=== PATIENT | female | born 1935 | race Caucasian/White ===

== ENCOUNTER 2017-03-08 10:54 | Observation (INO) | payer MEDICARE, OTHER ==
[2017-03-08] VITALS (11 sets, daily range): BP systolic 112–169; BP diastolic 62–91; PULSE 73–110; RESP 16–20; TEMP 98.5–99; O2SAT 94–99
[~2017-03-08] VITALS: Ht 160 cm; Wt 71.8 kg
[~2017-03-08 10:54] MED LIST: CARV40 PO; CHOL20005 PO; FURO1TAB62 PO; GABA100C4 PO; GLUCOMTESTSTRIPS XX; LEVO100T5 PO; LOSA50TA PO; METF1000 PO; MULT-6 PO; PRAV20TA PO; PROT40TA PO; SPIR25TA PO; TRIPCAP4 PO; ULTR50TA5 PO; VENL75XR PO; XARE15TA PO; Z.0.LANCETS XX
[2017-03-08 11:41] LABS: AUTOMATED NEUTROPHIL # 5.2 TH/MM3 (1.8-7.7); BASOPHIL % 0.3 % (0.0-2.0); EOSINOPHIL # 0.2 TH/MM3 (0-0.4); EOSINOPHIL % 2.9 % (0.0-4.0); HEMATOCRIT 27.7 % (35.0-46.0); HEMO FLAGS DIFF FINAL; LYMPH % 12.8 % (9.0-44.0); LYMPHOCYTE # 0.8 TH/MM3 (1.0-4.8); MEAN CELL VOLUME 85.6 FL (80.0-100.0); MEAN CORPUSCULAR HEMOGLOBIN 28.5 PG (27.0-34.0); MEAN CORPUSCULAR HGB CONC 33.3 % (32.0-36.0); MONO % 5.1 % (0.0-8.0); NEUT % 78.9 % (16.0-70.0); PLATELET COUNT 365 TH/MM3 (150-450); RED BLOOD COUNT 3.24 MIL/MM3 (4.00-5.30); RED CELL DISTRIBUTION WIDTH 12.9 % (11.6-17.2); WHITE BLOOD COUNT 6.5 TH/MM3 (4.0-11.0)
[2017-03-08 11:50] LABS: CHLORIDE 107 MEQ/L (98-107); POTASSIUM 4.6 MEQ/L (3.5-5.1); SODIUM (NA) 140 MEQ/L (136-145)
[2017-03-08 11:53] LABS: ANION GAP 9 MEQ/L (5-15); BLOOD UREA NITROGEN 34 MG/DL (7-18)
[2017-03-08 11:54] LABS: APTT (PATIENT) 28.9 SEC (24.3-30.1); INTERNATIONAL NORMALIZED RATIO 1.1 RATIO
[2017-03-08 11:56] LABS: ALT (GPT) 15 U/L (10-53); AST (GOT) 13 U/L (15-37); GLOMERULAR FILTRATION RATE 36 ML/MIN (>89)
[2017-03-08 11:58] LABS: TOTAL BILIRUBIN ADULT 0.7 MG/DL (0.2-1.0)
[2017-03-08 11:59] LABS: ALKALINE PHOSPHATASE 66 U/L (45-117)
--- NOTE | 2017-03-08 12:33 | PD ---
HPI Chief Complaint: Fall Time Seen by Provider: 11:14 Travel History International Travel<30 days: No Contact w/Intl Traveler<30days: No Traveled to known affect area: No History of Present Illness HPI This is an 82-year-old female who presents to the emergency department having fallen backwards onto concrete steps one week ago hitting the left side of her body with persistent left-sided pain, constant, moderate severity, associated with worsening weakness. She came in today because she's been increasingly weak throughout the past week, a little bit lightheaded, having difficulty exerting herself and difficulty completing her daily tasks. She is on Xarelto and has significant bruising on her abdomen and back. PFSH Past Medical History Hx Anticoagulant Therapy: Yes Arthritis: Yes Asthma: No Atrial Fibrillation: Yes Autoimmune Disease: No Anxiety: No Heart Rhythm Problems: Yes (A-FIB S/P ABLATION X2) Cancer: No Cardiovascular Problems: Yes (htn on meds, hx of a-fib) High Cholesterol: Yes Chest Pain: Yes Congestive Heart Failure: Yes COPD: No Cerebrovascular Accident: No Diabetes: Yes Patient Takes Glucophage: No Diminished Hearing: No Endocrine: Yes Gastrointestinal Disorders: No GERD: No Genitourinary: No Headaches: Yes Hiatal Hernia: No Hypertension: Yes Immune Disorder: No Implanted Vascular Access Dvce: Yes Musculoskeletal: Yes Neurologic: Yes (NEUROPATHY) Psychiatric: Yes (TAKES EFFEXOR) Reproductive: No Respiratory: Yes Migraines: Yes Seizures: No Sleep Apnea: Yes (does not use c-pap) Thyroid Disease: Yes Ulcer: No PNEUMOCCOCAL Vaccine (Year): 1 ?: Not Menopausal: Yes Past Surgical History Abdominal Surgery: Yes (TOTAL ABD. HYSTERECTOMY) AICD: No Appendectomy: Yes Arteriovenous Shunt: No Cardiac Surgery: Yes (ABLATION X2) Ear Surgery: No Endocrine Surgery: No Eye Surgery: Yes (LENS IMPLANTS) Gynecologic Surgery: Yes (SEE ABOVE) Hysterectomy: Yes Insulin Pump: No Joint Replacement: Yes (BILAT. KNEES) Neurologic Surgery: No Oral Surgery: Yes (TEETH REMOVAL, DENTURE IMPLANT) Pacemaker: No Thoracic Surgery: No Other Surgery: Yes (BILAT. KNEE REPLACEMENT, HYSTERECTOMY) Social History Alcohol Use: No Tobacco Use: No Substance Use: No Allergies-Medications (Allergen,Severity, Reaction): Coded Allergies: Codeine (Verified Allergy, Intermediate, Itching, 03/08/17) Sulfa (Verified Allergy, Intermediate, Itching, 03/08/17) Lisinopril (Verified Allergy, Unknown, Cough, 03/08/17) Reported Meds & Prescriptions Reported Meds & Active Scripts Active Metformin (Metformin HCl) 1,000 Mg Tab 1,000 Mg PO BIDPC With meals Lasix (Furosemide) 20 Mg Tab 20 Mg PO BID Gabapentin 100 Mg Cap 400 Mg PO HS Reported Spironolactone 25 Mg Tab 25 Mg PO HS Losartan (Losartan Potassium) 50 Mg Tab 50 Mg PO HS Effexor XR 24 HR (Venlafaxine HCl) 75 Mg Cap 75 Mg PO HS Coreg Cr 24 HR (Carvedilol) 40 Mg Cap 40 Mg PO HS Centrum (Multiple Vitamins W/ Minerals) 1 Tab 1 Tab PO HS Xarelto (Rivaroxaban) 15 Mg Tab 15 Mg PO HS Ultram (Tramadol HCl) 50 Mg Tab 50 Mg PO BID PRN Protonix (Pantoprazole Sodium) 40 Mg Tab 40 Mg PO DAILY Pravachol (Pravastatin) 20 Mg Tab 20 Mg PO HS Levothyroxine (Levothyroxine Sodium) 100 Mcg Tab 100 Mcg PO DAILY D3 Super Strength (Cholecalciferol) 2,000 Unit Cap 2,000 Units PO DAILY Review of Systems Except as stated in HPI: all other systems reviewed are Neg Physical Exam Narrative GENERAL: Pale SKIN: Marked Ecchymoses over the abdomen and left back and flank HEAD: Atraumatic. Normocephalic. EYES: Pupils equal and round. No injection or drainage. ENT: Moist mucous membranes NECK: Trachea midline. CARDIOVASCULAR: Regular rate and rhythm. No murmur appreciated. RESPIRATORY: Clear to auscultation. Breath sounds equal bilaterally. GASTROINTESTINAL: Abdomen soft, non-tender, nondistended. MUSCULOSKELETAL: No obvious deformities. NEUROLOGICAL: Awake and alert. No obvious cranial nerve deficits. Moving all extremities. PSYCHIATRIC: Appropriate mood and affect; insight and judgment normal. Data Data Last Documented VS Vital Signs Date Time Temp Pulse Resp B/P Pulse Ox O2 Delivery O2 Flow Rate FiO2 03/08/17 13:41 90 20 112/62 97 03/08/17 11:00 98.5 Orders Complete Blood Count With Diff (03/08/17 11:22) Comprehensive Metabolic Panel (03/08/17 11:22) ^ Insert Iv (03/08/17 11:22) Prothrombin Time / Inr (Pt) (03/08/17 11:22) Act Partial Throm Time (Ptt) (03/08/17 11:22) Type And Screen (03/08/17 11:22) Ct Thorax/ Chest Wo Iv Contras (03/08/17 ) Ct Abd/Pel W/O Iv Contrast (03/08/17 ) Sodium Chlor 0.9% 1000 Ml Inj (Ns 1000 M (03/08/17 13:45) Admit Order (Ed Use Only) (03/08/17 14:08) Labs Laboratory Tests Test 03/08/17 11:30 White Blood Count 6.5 TH/MM3 Red Blood Count 3.24 MIL/MM3 Hemoglobin 9.3 GM/DL Hematocrit 27.7 % Mean Corpuscular Volume 85.6 FL Mean Corpuscular Hemoglobin 28.5 PG Mean Corpuscular Hemoglobin 33.3 % Concent Red Cell Distribution Width 12.9 % Platelet Count 365 TH/MM3 Mean Platelet Volume 6.7 FL Neutrophils (%) (Auto) 78.9 % Lymphocytes (%) (Auto) 12.8 % Monocytes (%) (Auto) 5.1 % Eosinophils (%) (Auto) 2.9 % Basophils (%) (Auto) 0.3 % Neutrophils # (Auto) 5.2 TH/MM3 Lymphocytes # (Auto) 0.8 TH/MM3 Monocytes # (Auto) 0.3 TH/MM3 Eosinophils # (Auto) 0.2 TH/MM3 Basophils # (Auto) 0.0 TH/MM3 CBC Comment DIFF FINAL Differential Comment Prothrombin Time 12.0 SEC Prothromb Time International 1.1 RATIO Ratio Activated Partial 28.9 SEC Thromboplast Time Sodium Level 140 MEQ/L Potassium Level 4.6 MEQ/L Chloride Level 107 MEQ/L Carbon Dioxide Level 24.0 MEQ/L Anion Gap 9 MEQ/L Blood Urea Nitrogen 34 MG/DL Creatinine 1.40 MG/DL Estimat Glomerular Filtration 36 ML/MIN Rate Random Glucose 190 MG/DL Calcium Level 9.0 MG/DL Total Bilirubin 0.7 MG/DL Aspartate Amino Transf 13 U/L (AST/SGOT) Alanine Aminotransferase 15 U/L (ALT/SGPT) Alkaline Phosphatase 66 U/L Total Protein 7.6 GM/DL Albumin 3.3 GM/DL Blood Type O NEGATIVE Antibody Screen NEGATIVE MDM Medical Decision Making Medical Screen Exam Complete: Yes Emergency Medical Condition: Yes Interpretation(s) Afebrile, mild tachycardia Hemoglobin is 9.3 down from baseline at 13 Renal insufficiency compared to prior Last [address] 03/08/17 0000 Signed Impressions: Service Date/Time: February 13:00 - CONCLUSION: 1. No evidence of visceral injury or pneumothorax. The ribs and bony thorax are intact. 2. Multiple tiny scattered noncalcified pulmonary nodules which are nonspecific. Given the calcified granulomas in the liver and spleen these most likely represent noncalcified granulomas. Short-term CT followup is recommended beginning in 6 months. 3. Mild underlying emphysema. Trenton Amos MD Abdomen/Pelvis CT 03/08/17 0000 Signed Impressions: Service Date/Time: February 13:00 - CONCLUSION: 1. No evidence of visceral injury. 2. Mild diverticulosis. 3. Calcified granulomas in the liver and spleen. 4. Multiple tiny noncalcified pulmonary nodules noted in both lung bases. Please see chest CT report for further details. Trenton Amos MD Differential Diagnosis Splenic laceration, liver laceration, abdominal wall hematoma, anemia Narrative Course This is an 82-year-old female who presents to the emergency department having had a mechanical fall 1 week ago with increasing dyspnea on exertion and generalized weakness. She has impressive bruising extending along her left torso over her abdomen. She takes xarelto at home. She was placed on a monitor and an IV was established. Labs demonstrated significant anemia with a hemoglobin of 9.3 compared to a baseline of 13. Given she is symptomatic I think it's reasonable to transfuse her a unit of blood and admit her for observation. CT of the chest and pelvis were obtained without contrast due to renal insufficiency and were negative for obvious internal source of bleeding. I suspect she lost a large amount of blood on her external hematomas. Physician Communication Physician Communication Discussed with Dr. Monroe Diagnosis Primary Impression: Symptomatic anemia Additional Impression: Fall Qualified Code: W19.XXXA - Fall, initial encounter Admitting Information Admitting Physician Requests: Observation Jacki Salomon MD Mar 08, 2017 12:33
[2017-03-08] MEDS ORDERED: SODIUM CHLOR 0.9% 1000 ML INJ 1,000 ML IV ONE (13:45)
--- NOTE | 2017-03-08 13:45 | RADHPO ---
EXAM DATE/TIME: 03/08/2017 13:00 [facility] COMPARISON: CTA CHEST W 3D RECON, October 09, 2011, 1:35. INDICATIONS : Trauma. Fall 1 week ago. Bruising wrapped around torso. RADIATION DOSE: 15.74 CTDIvol (mGy) ; Combined studies - Thorax/Abdomen/Pelvis MEDICAL HISTORY : Diabetes mellitus type 2. Congestive heart failure. Hypertension. SURGICAL HISTORY : Appendectomy. Hysterectomy. Cardiac ablation. ENCOUNTER: Initial ACUITY: 1 week PAIN SCALE: 5/10 LOCATION: chest TECHNIQUE: Volumetric scanning of the chest was performed. Using automated exposure control and adjustment of t he mA and/or kV according to patient size, radiation dose was kept as low as reasonably achievable to obtain optimal diagnostic quality images. FINDINGS: LUNGS: There is no consolidation or pneumothorax. There are multiple tiny scattered noncalcified pulmonary n odules in both lungs measuring 1-3 mm in size. They're no larger masses. There is mild underlying emp hysema. PLEURAE: There is no pleural thickening or pleural effusion. MEDIASTINUM: The heart and great vessels demonstrate no acute abnormality. There is no mediastinal or hilar lymph adenopathy. Tracheal calcifications are present. AXILLAE: Within normal limits. No lymphadenopathy. MUSCULOSKELETAL: Within normal limits for patient age. MISCELLANEOUS: The visualized upper abdominal organs demonstrate no acute abnormality. There are multiple calcified granulomas in the liver and spleen. CONCLUSION: 1. No evidence of visceral injury or pneumothorax. The ribs and bony thorax are intact. 2. Multiple tiny scattered noncalcified pulmonary nodules which are nonspecific. Given the calcified granulomas in the liver and spleen these most likely represent noncalcified granulomas. Short-term CT followup is recommended beginning in 6 months. 3. Mild underlying emphysema. Trenton Amos MD on March 08, 2017 at 13:38 Board Certified Radiologist. This report was verified electronically.
--- NOTE | 2017-03-08 13:47 | RADHPO ---
EXAM DATE/TIME: 03/08/2017 13:00 [facility] COMPARISON: CT THORAX W/O CONTRAST, March 08, 2017, 13:00. CT ABDOMEN & PELVIS W CONTRAST, May 03, 2016, 17:34. INDICATIONS : Trauma. Fall 1 week ago. Bruising wrapped around torso. ORAL CONTRAST: No oral contrast ingested. RADIATION DOSE: 15.74 CTDIvol (mGy) ; Combined studies - Thorax/Abdomen/Pelvis MEDICAL HISTORY : Diabetes mellitus type 2. Congestive heart failure. Hypertension. SURGICAL HISTORY : Appendectomy. Hysterectomy.Cardiac ablation. ENCOUNTER: Initial ACUITY: 1 week PAIN SCALE: 5/10 LOCATION: Abdomen. TECHNIQUE: Volumetric scanning of the abdomen and pelvis was performed. Using automated exposure control and ad justment of the mA and/or kV according to patient size, radiation dose was kept as low as reasonably achievable to obtain optimal diagnostic quality images. FINDINGS: LOWER LUNGS: Multiple tiny noncalcified pulmonary nodules are again noted. LIVER: Homogeneous density without lesion. There is no dilation of the biliary tree. No calcified gallston es. There are numerous scattered calcified granulomas. SPLEEN: Normal size without lesion. There are multiple small calcified granulomas PANCREAS: Within normal limits. KIDNEYS: Normal in size and shape. There is no mass, stone, or hydronephrosis. ADRENAL GLANDS: Within normal limits. VASCULAR: There is no aortic aneurysm. BOWEL/MESENTERY: The stomach, small bowel, and colon demonstrate no acute abnormality. Multiple diverticuli are presen t greatest in the sigmoid colon. There is no free intraperitoneal air or fluid. ABDOMINAL WALL: Within normal limits. RETROPERITONEUM: There is no lymphadenopathy. BLADDER: No wall thickening or mass. REPRODUCTIVE: Within normal limits. INGUINAL: There is no lymphadenopathy or hernia. MUSCULOSKELETAL: No acute fracture or malalignment. There are degenerative changes in both hips and lumbar spine. CONCLUSION: 1. No evidence of visceral injury. 2. Mild diverticulosis. 3. Calcified granulomas in the liver and spleen. 4. Multiple tiny noncalcified pulmonary nodules noted in both lung bases. Please see chest CT report for further details. Trenton Amos MD on March 08, 2017 at 13:43 Board Certified Radiologist. This report was verified electronically.
[2017-03-08] MEDS ORDERED: FUROSEMIDE 20 MG/2 ML VIAL IV PUSH ONE (14:15)
[2017-03-08] MEDS ORDERED: SENNOSIDES 8.6 MG TAB PO PRN (15:00)
[2017-03-08] MEDS ORDERED: SODIUM CHLORIDE 0.9% FLUSH 10 ML FLUSH IV FLUSH PRN (15:00)
[2017-03-08] MEDS ORDERED: NALOXONE HCL 0.4 MG/ML AMP IV PRN (15:00)
[2017-03-08] MEDS ORDERED: ACETAMINOPHEN/HYDROcodone 325 MG/5 MG TAB PO PRN (15:00)
[2017-03-08] MEDS ORDERED: ACETAMINOPHEN 325 MG TAB PO PRN ×2 (15:00)
--- NOTE | 2017-03-08 15:08 | HHI.HP ---
[facility] Deana Hilton MD Admission Diagnosis symptomatic anemia, fall Diagnoses: Chief Complaint: Pain Travel History International Travel<30 Days: No Contact w/Intl Traveler <30 Da: No Traveled to Known Affected Are: No History of Present Illness The patient is an 82-year-old female with a past medical history of atrial fibrillation and CHF who is presenting to the hospital with pain involving her back and abdominal area. The patient said she had a fall about a week ago when she was helping her friend bring down a wheelchair down a flight of stairs. The patient ended up falling on her left side of her body. She says she didn't have pain right away but about 2 hours later she developed left-sided upper back pain. Over the next few days she noticed significant bruising in the back as well as around the left side of her flank. Her pain was rated at 9 out of 10 in severity at its worst. Her daughter noticed the extent of the patient's wounds and the patient was brought to the hospital. The pt says she has been having falls every 3-4 months or so. She said she has been hitting her head. Her daughter is concerned about her being on Xarelto and the frequent falls. Review of Systems Except as stated in HPI: all other systems reviewed are Neg Past Family Social History Past Medical History Atrial fibrillation status post ablation 2 CHF Hypothyroidism Diabetes HLP Past Surgical History Appendectomy Hysterectomy Bilateral knee replacements Allergies: Coded Allergies: Codeine (Verified Allergy, Intermediate, Itching, 03/08/17) Sulfa (Verified Allergy, Intermediate, Itching, 03/08/17) Lisinopril (Verified Allergy, Unknown, Cough, 03/08/17) Active Ordered Medications Current Medications Medications (Trade) Dose Ordered Sig/Greta Route Start Time Stop Time Status Last Admin (Neurontin) 400 mg HS PO 03/08/17 21:00 (Protonix) 40 mg DAILY PO 03/09/17 09:00 (Pravachol) 20 mg HS PO 03/08/17 21:00 (Effexor Xr) 75 mg HS PO 03/08/17 21:00 (Coreg) 12.5 mg BID PO 03/08/17 21:00 (Vitamin D3) 2,000 units HS PO 03/09/17 21:00 (Synthroid) 100 mcg HS PO 03/09/17 21:00 (Aspirin) 325 mg HS PO 03/08/17 21:00 Family History CAD Breast cancer CVA Social History The patient does not drink, smoke or use illicit substances. Physical Exam Vital Signs Vital Signs Date Time Temp Pulse Resp B/P Pulse Ox O2 Delivery O2 Flow Rate FiO2 03/08/17 14:39 73 20 162/71 97 03/08/17 13:41 90 20 112/62 97 03/08/17 12:13 86 20 139/69 94 03/08/17 11:00 98.5 100 16 120/86 96 Physical Exam GENERAL: Resting comfortably. SKIN: Marked ecchymoses over the abdomen and left back and flank; pallor noted. HEAD: Atraumatic. Normocephalic. EYES: Pupils equal and round. No injection or drainage. ENT: Moist mucous membranes NECK: Trachea midline. CARDIOVASCULAR: Regular rate and rhythm. No murmur appreciated. RESPIRATORY: Clear to auscultation. Breath sounds equal bilaterally. GASTROINTESTINAL: Abdomen soft, non-tender, nondistended. MUSCULOSKELETAL: No obvious deformities. NEUROLOGICAL: Awake and alert. No obvious cranial nerve deficits. Moving all extremities. PSYCHIATRIC: Appropriate mood and affect; insight and judgment normal. Laboratory Laboratory Tests Test 03/08/17 11:30 White Blood Count 6.5 Red Blood Count 3.24 Hemoglobin 9.3 Hematocrit 27.7 Mean Corpuscular Volume 85.6 Mean Corpuscular Hemoglobin 28.5 Mean Corpuscular Hemoglobin 33.3 Concent Red Cell Distribution Width 12.9 Platelet Count 365 Mean Platelet Volume 6.7 Neutrophils (%) (Auto) 78.9 Lymphocytes (%) (Auto) 12.8 Monocytes (%) (Auto) 5.1 Eosinophils (%) (Auto) 2.9 Basophils (%) (Auto) 0.3 Neutrophils # (Auto) 5.2 Lymphocytes # (Auto) 0.8 Monocytes # (Auto) 0.3 Eosinophils # (Auto) 0.2 Basophils # (Auto) 0.0 CBC Comment DIFF FINAL Differential Comment Prothrombin Time 12.0 Prothromb Time International 1.1 Ratio Activated Partial 28.9 Thromboplast Time Sodium Level 140 Potassium Level 4.6 Chloride Level 107 Carbon Dioxide Level 24.0 Anion Gap 9 Blood Urea Nitrogen 34 Creatinine 1.40 Estimat Glomerular Filtration 36 Rate Random Glucose 190 Calcium Level 9.0 Total Bilirubin 0.7 Aspartate Amino Transf 13 (AST/SGOT) Alanine Aminotransferase 15 (ALT/SGPT) Alkaline Phosphatase 66 Total Protein 7.6 Albumin 3.3 Blood Type O NEGATIVE Antibody Screen NEGATIVE Result Diagram: 03/08/17 1130 03/08/17 1130 Imaging Last Impressions Chest CT 03/08/17 0000 Signed Impressions: Service Date/Time: February 13:00 - CONCLUSION: 1. No evidence of visceral injury or pneumothorax. The ribs and bony thorax are intact. 2. Multiple tiny scattered noncalcified pulmonary nodules which are nonspecific. Given the calcified granulomas in the liver and spleen these most likely represent noncalcified granulomas. Short-term CT followup is recommended beginning in 6 months. 3. Mild underlying emphysema. Trenton Amos MD Abdomen/Pelvis CT 03/08/17 0000 Signed Impressions: Service Date/Time: February 13:00 - CONCLUSION: 1. No evidence of visceral injury. 2. Mild diverticulosis. 3. Calcified granulomas in the liver and spleen. 4. Multiple tiny noncalcified pulmonary nodules noted in both lung bases. Please see chest CT report for further details. Trenton Amos MD Assessment and Plan Assessment and Plan Falls/ Ecchymosis/ Anemia The patient has been falling down every few months. Most recently she injured the left side of her back and abdomen and has significant bruising and pain in those areas. She is on Xarelto for a history of atrial fibrillation. Hemoglobin was lower than baseline in the emergency department. The patient was scanned and the results showed: No evidence of visceral injury or pneumothorax; The ribs and bony thorax are intact; Multiple tiny scattered noncalcified pulmonary nodules which are nonspecific; Calcified granulomas in the liver and spleen; Multiple tiny noncalcified pulmonary nodules noted in both lung bases. - transfuse 1 unit of red cells for symptomatic anemia. Follow CBC. - PT/ OT evals. - d/c Xarelto and start ASA. - CT scans in 6 months for follow-up of granulomas. - pain control with a bowel regimen. Atrial fibrillation The patient is status post 2 ablations. The patient's daughter is concerned about the patient being on Xarelto because of the patient's frequent falls. - Discussed with daughter and patient, will change Xarelto to full strength aspirin. 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 - Continue cardiac regimen. Renal insufficiency The patient recently had her diuretics adjusted. - Hold diuretics and monitor BMP. DM The pt is on metformin as an outpt. - hold metformin. - insulin sliding scale. HTN Blood pressure elevation s/t pain. - pain control. - Vasotec as needed. PPx: SCDs. Code Status Full. Discussed Condition With Pt, pt's daughter, Dr. Salomon. Trenton Monroe DO Mar 08, 2017 15:08
[2017-03-08] MEDS: INSULIN ASPART SUPPLEMENTAL SCALE SQ SCH ×2 (16:00→21:00)
[2017-03-08] MEDS ORDERED: PRAVASTATIN SOD 20 MG TAB PO SCH (21:00)
[2017-03-08] MEDS ORDERED: GABAPENTIN 100 MG CAP PO SCH (21:00)
[2017-03-08] MEDS: SODIUM CHLORIDE 0.9% FLUSH 10 ML FLUSH IV FLUSH SCH (21:00)
[2017-03-08] MEDS ORDERED: VENLAFAXINE HCL XR 75 MG CAP PO SCH (21:00)
[2017-03-08] MEDS ORDERED: RIVAROXABAN 15 MG TAB PO SCH (21:00)
[2017-03-08] MEDS ORDERED: ASPIRIN 325 MG TAB PO SCH (21:00)
[2017-03-08] MEDS: DOCUSATE SODIUM 100 MG CAP PO SCH (21:03)
[2017-03-08] MEDS: CARVEDILOL 12.5 MG TAB PO SCH (21:04)
[2017-03-09] VITALS: BP 135/79; PULSE 94; RESP 16; TEMP 99.1; O2SAT 95
[2017-03-09 04:00] VITALS: BP 146/80; PULSE 80; RESP 16; TEMP 98.2; O2SAT 98
[2017-03-09] MEDS ORDERED: LEVOTHYROXINE SODIUM 100 MCG TAB PO SCH ×2 (06:00→21:00)
[2017-03-09] MEDS: INSULIN ASPART SUPPLEMENTAL SCALE SQ SCH (06:16)
[2017-03-09 08:00] VITALS: BP 130/70; PULSE 85; RESP 18; TEMP 97.4; O2SAT 96
[2017-03-09 08:13] LABS: AUTOMATED NEUTROPHIL # 3.1 TH/MM3 (1.8-7.7); BASOPHIL % 0.6 % (0.0-2.0); EOSINOPHIL # 0.3 TH/MM3 (0-0.4); EOSINOPHIL % 5.7 % (0.0-4.0); HEMATOCRIT 33.8 % (35.0-46.0); HEMO FLAGS DIFF FINAL; LYMPH % 22.8 % (9.0-44.0); LYMPHOCYTE # 1.1 TH/MM3 (1.0-4.8); MEAN CELL VOLUME 87.4 FL (80.0-100.0); MEAN CORPUSCULAR HGB CONC 32.1 % (32.0-36.0); MONO % 8.8 % (0.0-8.0); NEUT % 62.1 % (16.0-70.0); PLATELET COUNT 368 TH/MM3 (150-450); RED BLOOD COUNT 3.87 MIL/MM3 (4.00-5.30); RED CELL DISTRIBUTION WIDTH 13.4 % (11.6-17.2); WHITE BLOOD COUNT 4.9 TH/MM3 (4.0-11.0)
[2017-03-09 08:14] LABS: POTASSIUM 4.4 MEQ/L (3.5-5.1)
[2017-03-09 08:17] LABS: BICARBONATE 29.1 MEQ/L (21.0-32.0)
[2017-03-09] MEDS ORDERED: CHOLECALCIFEROL (VIT D3) 1000 UNIT TAB PO SCH ×2 (09:00→21:00)
[2017-03-09] MEDS: DOCUSATE SODIUM 100 MG CAP PO SCH (09:00)
[2017-03-09] MEDS ORDERED: PANTOPRAZOLE SOD 40 MG DELAYED RELEASE TAB PO SCH (09:00)
[2017-03-09] MEDS: CARVEDILOL 12.5 MG TAB PO SCH (09:48)
[2017-03-09] MEDS: SODIUM CHLORIDE 0.9% FLUSH 10 ML FLUSH IV FLUSH SCH (09:50)
[2017-03-09] MEDS ORDERED: HYDR-3516 PO (09:53)
[2017-03-09] MEDS ORDERED: ASPI325T PO (09:53)
--- NOTE | 2017-03-09 10:00 | HHI.DCPOC ---
Discharge Care Plan Diagnosis: (1) Current use of supervisor intermediates anticoagulation (2) Head trauma (3) Fall (4) Anemia (5) Acute renal insufficiency Goals to Promote Your Health * To prevent worsening of your condition and complications * To maintain your health at the optimal level Directions to Meet Your Goals Your Lasix and Aldactone are on hold to help your kidney function improve. Please discuss resuming with your qa specialist. We have stopped Xarelto and started a full strength aspirin in light of your recent falls and trauma. Also discuss this change with your qa specialist. Take your medications as prescribed Follow your dietary instruction Follow activity as directed Keep your appointments as scheduled Take your immunizations and boosters as scheduled If your symptoms worsen call your PCP, if no PCP go to Urgent Care Center or Emergency Room Smoking is Dangerous to Your Health. Avoid second hand smoke Call the 24-hour hour crisis hotline for domestic abuse at Trenton Monroe DO Mar 09, 2017 10:00
--- NOTE | 2017-03-09 10:07 | HHI.PR ---
Subjective Remarks The patient was feeling well and wants to go home. She said she has energy and does not feel weak. She ambulated with physical therapy and did not have any difficulties. She had no acute complaints. Discussed with nursing. Objective Vitals Vital Signs Date Time Temp Pulse Resp B/P Pulse Ox O2 Delivery O2 Flow Rate FiO2 03/09/17 08:00 97.4 85 18 130/70 96 03/09/17 04:00 98.2 80 16 146/80 98 03/09/17 00:00 99.1 94 16 135/79 95 03/08/17 23:15 98.7 90 18 120/90 96 03/08/17 22:40 99.0 97 18 123/75 96 03/08/17 22:25 98.6 110 18 123/71 98 03/08/17 20:00 99.0 108 20 145/91 99 03/08/17 19:30 97 21 03/08/17 15:33 88 20 169/80 98 03/08/17 15:30 98 21 03/08/17 14:39 73 20 162/71 97 03/08/17 13:41 90 20 112/62 97 03/08/17 12:13 86 20 139/69 94 03/08/17 11:00 98.5 100 16 120/86 96 I/O 03/08/17 03/08/17 03/08/17 03/09/17 03/09/17 03/09/17 07:00 15:00 23:00 07:00 15:00 23:00 Intake Total 680 ml 280 ml Balance 680 ml 280 ml Intake Oral 680 ml 280 ml IV Total 0 ml # Voids 3 1 # Bowel Movements 0 0 Result Diagram: 03/09/17 0740 03/09/17 0740 Imaging Last Impressions Chest CT 03/08/17 0000 Signed Impressions: Service Date/Time: February 13:00 - CONCLUSION: 1. No evidence of visceral injury or pneumothorax. The ribs and bony thorax are intact. 2. Multiple tiny scattered noncalcified pulmonary nodules which are nonspecific. Given the calcified granulomas in the liver and spleen these most likely represent noncalcified granulomas. Short-term CT followup is recommended beginning in 6 months. 3. Mild underlying emphysema. Trenton Amos MD Abdomen/Pelvis CT 03/08/17 0000 Signed Impressions: Service Date/Time: February 13:00 - CONCLUSION: 1. No evidence of visceral injury. 2. Mild diverticulosis. 3. Calcified granulomas in the liver and spleen. 4. Multiple tiny noncalcified pulmonary nodules noted in both lung bases. Please see chest CT report for further details. Trenton Amos MD Objective Remarks GENERAL: Resting comfortably. SKIN: Marked ecchymoses over the abdomen and left back and flank; pallor noted. HEAD: Atraumatic. Normocephalic. EYES: Pupils equal and round. No injection or drainage. ENT: Moist mucous membranes NECK: Trachea midline. CARDIOVASCULAR: Regular rate and rhythm. No murmur appreciated. RESPIRATORY: Clear to auscultation. Breath sounds equal bilaterally. GASTROINTESTINAL: Abdomen soft, non-tender, nondistended. MUSCULOSKELETAL: No obvious deformities. NEUROLOGICAL: Awake and alert. No obvious cranial nerve deficits. Moving all extremities. PSYCHIATRIC: Appropriate mood and affect; insight and judgment normal. Medications and IVs Current Medications Medications (Trade) Dose Ordered Sig/Greta Route Start Time Stop Time Status Last Admin (Neurontin) 400 mg HS PO 03/08/17 21:00 03/08/17 21:00 (Protonix) 40 mg DAILY PO 03/09/17 09:00 03/09/17 09:48 (Pravachol) 20 mg HS PO 03/08/17 21:00 03/08/17 21:03 (Effexor Xr) 75 mg HS PO 03/08/17 21:00 03/08/17 21:04 (Coreg) 12.5 mg BID PO 03/08/17 21:00 03/09/17 09:48 (Vitamin D3) 2,000 units HS PO 03/09/17 21:00 (Synthroid) 100 mcg HS PO 03/09/17 21:00 (Aspirin) 325 mg HS PO 03/08/17 21:00 03/08/17 21:04 (NS Flush) 2 ml UNSCH PRN IV FLUSH 03/08/17 15:00 (NS Flush) 2 ml BID IV FLUSH 03/08/17 21:00 03/09/17 09:50 (Tylenol) 650 mg Q4H PRN PO 03/08/17 15:00 (Colace) 100 mg Q12HR PO 03/08/17 21:00 03/08/17 21:03 (Senokot) 17.2 mg Q12H PRN PO 03/08/17 15:00 (Tylenol) 650 mg Q6H PRN PO 03/08/17 15:00 ([place] 5-325 Mg) 1 tab Q4H PRN PO 03/08/17 15:00 03/08/17 21:15 (Narcan Inj) 0.4 mg UNSCH PRN IV 03/08/17 15:00 A/P Assessment and Plan Falls/ Ecchymosis/ Anemia The patient has been falling down every few months. Most recently she injured the left side of her back and abdomen and has significant bruising and pain in those areas. She is on Xarelto for a history of atrial fibrillation. Hemoglobin was lower than baseline in the emergency department. The patient was scanned and the results showed: No evidence of visceral injury or pneumothorax; The ribs and bony thorax are intact; Multiple tiny scattered noncalcified pulmonary nodules which are nonspecific; Calcified granulomas in the liver and spleen; Multiple tiny noncalcified pulmonary nodules noted in both lung bases. - transfused 1 unit of red cells for symptomatic anemia. Follow CBC. Hemoglobin improved from 9.3 to 10.8 and the pt's symptoms have resolved. - check a CBC in 2-3 days. - PT eval appreciated. The pt is stable for discharge home. - d/c Xarelto and started ASA. - CT scans in 6 months for follow-up of pulmonary nodules. - pain control with a bowel regimen. Atrial fibrillation The patient is status post 2 ablations. The patient's daughter is concerned about the patient being on Xarelto because of the patient's frequent falls. - Discussed with daughter and patient, will change Xarelto to full strength aspirin. The patient will notify her paper feeder about the changes. - Continue cardiac regimen. Renal insufficiency The patient recently had her diuretics adjusted. - Hold diuretics and monitor BMP. Improving. Hold diuretics upon discharge and follow-up with cardiology as an outpt. - check a BMP in 2-3 days. DM The pt is on metformin as an outpt. - hold metformin. Resume upon discharge. Decrease dose or d/c if renal insufficiency does not continue to improve. - follow up with PCP. - insulin sliding scale. HTN Blood pressure elevation s/t pain. - pain control. - Vasotec as needed. PPx: SCDs. Discharge Planning D/c home. Trenton Monroe DO Mar 09, 2017 10:07
[2017-03-13] MEDS ORDERED: REME15TA PO (10:55)
[2017-03-13] MEDS ORDERED: VENL1CAP38 PO (11:00)
[2017-03-13] MEDS ORDERED: REME30TA PO (11:04)
== END 2017-03-09 10:28 | disposition home or self-care (01) ==
LOC: PHED 10:54 → PHEDA 14:08 → PH3A 15:52
PROVIDERS: ADMIT Hospitalist; ATTEND Hospitalist
DX: D64.9 Anemia, unspecified (principal); R58 Hemorrhage, not elsewhere classified; I48.91 Unspecified atrial fibrillation; N28.9 Disorder of kidney and ureter, unspecified; E11.40 Type 2 diabetes mellitus with diabetic neuropathy, unspecified; I11.0 Hypertensive heart disease with heart failure; I50.9 Heart failure, unspecified; E03.9 Hypothyroidism, unspecified; E78.5 Hyperlipidemia, unspecified; R29.6 Repeated falls; R91.8 Other nonspecific abnormal finding of lung field; Z79.01 Long term (current) use of anticoagulants; Z96.653 Presence of artificial knee joint, bilateral; Z88.5 Allergy status to narcotic agent; Z88.2 Allergy status to sulfonamides; Z88.8 Allergy status to other drugs, medicaments and biological substances; Z79.84 Long term (current) use of oral hypoglycemic drugs
CPT/HCPCS: 36430; 71250; 74176; 80048; 80053; 82948; 85025; 85610; 85730; 86850; 86900; 86901; 86920; 96374; 97162; 97165; 99285; G0378; G8987; G8988; G8989; J1940; J7030; P9016

== ENCOUNTER → 2017-03-14 | Outpatient (CLI) | payer MEDICARE, OTHER ==
[~2017-03-14] MED LIST changes: +ASPI325T PO; -FURO1TAB62 PO; +GABA400C5 PO; -GLUCOMTESTSTRIPS XX; +REME15TA PO; +REME30TA PO; -SPIR25TA PO; -TRIPCAP4 PO; +VENL1CAP38 PO; -VENL75XR PO; -XARE15TA PO; -Z.0.LANCETS XX; +ZITHTAB PO
--- NOTE | 2017-03-19 09:27 | RSPPFT ---
DATE OF PROCEDURE: 03/14/17 COMMENTS: Spirometry with FVC of 1.8, FEV1 of 1.3, FEV1/FVC ratio at 72%. A positive and significant response to acutely inhaled bronchodilator noted. Slow vital capacity is 49% of predicted. TLC is 112%. Diffusion capacity is mildly reduced however, normal when corrected for alveolar volume. IMPRESSION: 1. Moderately severe airways obstruction. 2. No evidence of airways restriction. 3. Positive and significant response to acutely inhaled bronchodilator.
== END ==
LOC: HRSP 12:48
PROVIDERS: ATTEND Internal Medicine Cardiovascular Disease
DX: R06.02 Shortness of breath (principal)
CPT/HCPCS: 94060; 94726; 94729

== ENCOUNTER → 2017-03-15 | Outpatient (CLI) | payer MEDICARE, OTHER ==
[2017-03-15 09:33] LABS: AUTOMATED NEUTROPHIL # 3.7 TH/MM3 (1.8-7.7); BASOPHIL % 0.7 % (0.0-2.0); EOSINOPHIL # 0.5 TH/MM3 (0-0.4); EOSINOPHIL % 7.9 % (0.0-4.0); HEMATOCRIT 31.6 % (35.0-46.0); HEMO FLAGS DIFF FINAL; LYMPH % 21.6 % (9.0-44.0); LYMPHOCYTE # 1.3 TH/MM3 (1.0-4.8); MEAN CELL VOLUME 87.6 FL (80.0-100.0); MEAN CORPUSCULAR HGB CONC 34.2 % (32.0-36.0); MONO % 6.6 % (0.0-8.0); NEUT % 63.2 % (16.0-70.0); PLATELET COUNT 349 TH/MM3 (150-450); RED BLOOD COUNT 3.61 MIL/MM3 (4.00-5.30); RED CELL DISTRIBUTION WIDTH 14.3 % (11.6-17.2); WHITE BLOOD COUNT 5.9 TH/MM3 (4.0-11.0)
[2017-03-15 10:16] LABS: ALKALINE PHOSPHATASE 74 U/L (45-117); ALT (GPT) 18 U/L (10-53); ANION GAP 5 MEQ/L (5-15); AST (GOT) 17 U/L (15-37); BICARBONATE 29.1 MEQ/L (21.0-32.0); BLOOD UREA NITROGEN 34 MG/DL (7-18); CHLORIDE 108 MEQ/L (98-107); GLOMERULAR FILTRATION RATE 33 ML/MIN (>89); GLUCOSE,FASTING 130 MG/DL (74-99); HDL CHOLESTEROL 43.5 MG/DL (40.0-60.0); LDL CHOLESTEROL 72 MG/DL (0-99); POTASSIUM 5.5 MEQ/L (3.5-5.1); SODIUM (NA) 142 MEQ/L (136-145); TOTAL BILIRUBIN ADULT 0.5 MG/DL (0.2-1.0)
[2017-03-15 13:32] LABS: BLOOD, URINE NEG (NEG); COMMENT (UR) CULT NOT INDICATED; CULTURE IF INDICATED CULT NOT INDICATED; GLUCOSE,URINE NEG (NEG); HYALINE CAST, URINE 2 /lpf (RARE); KETONE, URINE NEG (NEG); MUCUS URINE FEW /lpf (OCC); NITRITE,URINE NEG (NEG); SQUAMOUS EPITHELIAL CELL URINE <1 /hpf (0-5); URINE COLOR YELLOW (YELLW/STRAW)
[2017-03-15 18:45] LABS: HEMOGLOBIN A1b 1.8 %; HEMOGLOBIN Ao 84.7 %; HEMOGLOBIN P3 5.4 %
== END ==
LOC: CLAB 09:04
PROVIDERS: ATTEND Family Medicine
DX: N28.9 Disorder of kidney and ureter, unspecified (principal); D64.9 Anemia, unspecified; N39.0 Urinary tract infection, site not specified
CPT/HCPCS: 36415; 80053; 80061; 81001; 82306; 83036; 84443; 85025

== ENCOUNTER 2017-04-12 11:26 | Emergency (ER) | payer MEDICARE, OTHER ==
[~2017-04-12] VITALS: Ht 162.6 cm; Wt 71.1 kg
[~2017-04-12 11:26] MED LIST changes: -GABA400C5 PO; -ZITHTAB PO
[2017-04-12 11:37] VITALS: BP 152/86; PULSE 75; RESP 21; TEMP 98.2; O2SAT 97
[2017-04-12 11:48] VITALS: BP 152/86; PULSE 72; RESP 21; TEMP 98.2; O2SAT 96
[2017-04-12 11:55] VITALS: BP 152/86; PULSE 72; RESP 21; TEMP 98.2; O2SAT 96
[2017-04-12] MEDS ORDERED: SODIUM CHLORIDE 0.9% FLUSH 10 ML FLUSH IVF PRN (12:00)
--- NOTE | 2017-04-12 12:00 | PD ---
HPI Chief Complaint: Respiratory Symptoms Time Seen by Provider: 12:00 Travel History International Travel<30 days: No Contact w/Intl Traveler<30days: No Traveled to known affect area: No History of Present Illness HPI 82-year-old female with a history of CHF, atrial fibrillation status post ablation now in sinus rhythm, hypertension, hyperlipidemia, diabetes, hypothyroidism presents to the emergency department by EMS for evaluation of shortness of breath. Per EMS report the patient had an appointment with her PCP Dr. Hilton scheduled this morning and while she was sitting in the waiting room for about an hour she became more short of breath, per the staff she was a little confused, per the staff at the physician's office her oxygen saturation was noted to be 78% on room air by their pulse oximeter. EMS reports that she was placed on oxygen and her oxygen is maintained at 98%. The patient states that for the past 3 days she's had worsening weakness and shortness of breath. States that she experiences this feeling of a tight band across her epigastrium which causes her to feel short of breath. States that she has had this sensation before for several years however it has been much more frequent over the last several days. She states that the symptoms seem to be alleviated with her albuterol inhaler and with the oxygen she has received by EMS. Denies any exacerbating symptoms. Denies any chest pain, lightheadedness, dizziness, nausea, vomiting, abdominal pain, diarrhea, bloody stool, black stool, swelling of the extremities, cough or cold symptoms, fever, chills. The patient states that she was recently taken off of Xarelto about 2 months ago because she had a few falls causing excessive bruising. Denies any history of blood clots, was on the blood thinner for atrial fibrillation stroke prevention. Denies any history of PA or stents. States she had a stress test a few weeks ago as an outpatient by Dr. Carbajal, is unsure of the results. No other complaints. PFSH Past Medical History Hx Anticoagulant Therapy: Yes (full strength aspirin daily) Arthritis: Yes Asthma: No Atrial Fibrillation: Yes Autoimmune Disease: No Anxiety: No Depression: Yes (TAKES EFFEXOR) Heart Rhythm Problems: Yes (A-FIB S/P ABLATION X2) Cancer: No Cardiovascular Problems: Yes High Cholesterol: Yes Chest Pain: Yes Congestive Heart Failure: Yes COPD: No Cerebrovascular Accident: No Diabetes: Yes Patient Takes Glucophage: Yes Diminished Hearing: No Endocrine: Yes Gastrointestinal Disorders: Yes (hx GI bleed per [facility]) GERD: No Genitourinary: No Headaches: Yes Hiatal Hernia: No Hypertension: Yes Immune Disorder: No Implanted Vascular Access Dvce: Yes Musculoskeletal: Yes Neurologic: Yes Psychiatric: Yes (TAKES EFFEXOR) Reproductive: No Respiratory: Yes Migraines: Yes Seizures: No Sleep Apnea: Yes (does not use c-pap) Thyroid Disease: Yes Ulcer: No Tetanus Vaccination: < 5 Years PNEUMOCCOCAL Vaccine (Year): 1 ?: Not Menopausal: Yes Past Surgical History Abdominal Surgery: Yes (appendiix) AICD: No Appendectomy: Yes Arteriovenous Shunt: No Cardiac Surgery: Yes (ABLATION X2) Ear Surgery: No Endocrine Surgery: No Eye Surgery: Yes (LENS IMPLANTS) Gynecologic Surgery: Yes (2 hysterectomies) Hysterectomy: Yes Insulin Pump: No Joint Replacement: Yes (BILAT. KNEES) Neurologic Surgery: No Oral Surgery: Yes (TEETH REMOVAL, DENTURE IMPLANT) Pacemaker: No Thoracic Surgery: No Other Surgery: Yes (BILAT. KNEE REPLACEMENT, HYSTERECTOMY) Social History Alcohol Use: No Tobacco Use: No Substance Use: No Allergies-Medications (Allergen,Severity, Reaction): Coded Allergies: Codeine (Verified Allergy, Intermediate, Itching, 04/12/17) Sulfa (Verified Allergy, Intermediate, Itching, 04/12/17) Lisinopril (Verified Allergy, Unknown, Cough, 04/12/17) Reported Meds & Prescriptions Reported Meds & Active Scripts Active Remeron (Mirtazapine) 30 Mg Tab 30 Mg PO HS Remeron (Mirtazapine) 15 Mg Tab 15 Mg PO HS Aspirin 325 Mg Tab 325 Mg PO HS Metformin (Metformin HCl) 1,000 Mg Tab 1,000 Mg PO BIDPC With meals Reported Gabapentin 400 Mg Cap 400 Cap PO HS Losartan (Losartan Potassium) 50 Mg Tab 50 Mg PO HS Coreg Cr 24 HR (Carvedilol) 40 Mg Cap 40 Mg PO HS Protonix (Pantoprazole Sodium) 40 Mg Tab 40 Mg PO DAILY Pravachol (Pravastatin) 20 Mg Tab 20 Mg PO HS Levothyroxine (Levothyroxine Sodium) 100 Mcg Tab 100 Mcg PO DAILY D3 Super Strength (Cholecalciferol) 2,000 Unit Cap 2,000 Units PO DAILY Review of Systems Except as stated in HPI: all other systems reviewed are Neg Physical Exam Narrative GENERAL: Well-nourished and well-developed pleasant patient in no acute distress who is nontoxic appearing. SKIN: Warm and dry. HEAD: Normocephalic and atraumatic. EYES: No injection, drainage, or hyphema noted. PERRLA. EOMI. ENT: No nasal drainage noted. Oropharynx is clear. NECK: Supple and the trachea is midline. CARDIOVASCULAR: Regular rate and rhythm. RESPIRATORY: Breath sounds are equal bilaterally with no accessory muscle use, wheezing, rhonchi, or crackles. GASTROINTESTINAL: Abdomen is soft, non-tender, and nondistended. MUSCULOSKELETAL: No obvious deformities, swelling, cyanosis, or ecchymosis is present throughout the upper and lower extremities. Patient has full range of motion without any signs of neurovascular compromise. NEUROLOGICAL: Awake, alert, and oriented. Normal speech and gait. Cranial nerves are grossly intact. Data Data Last Documented VS Vital Signs Date Time Temp Pulse Resp B/P Pulse Ox O2 Delivery O2 Flow Rate FiO2 04/12/17 11:55 98.2 72 21 152/86 96 Room Air Orders Complete Blood Count With Diff (04/12/17 11:47) Comprehensive Metabolic Panel (04/12/17 11:47) Magnesium (Mg) (04/12/17 11:47) Troponin I (04/12/17 11:47) Act Partial Throm Time (Ptt) (04/12/17 11:47) Prothrombin Time / Inr (Pt) (04/12/17 11:47) Urinalysis - C+S If Indicated (04/12/17 11:47) Chest, Single Ap (04/12/17 11:47) Ecg Monitoring (04/12/17 11:47) Iv Access Insert/Monitor (04/12/17 11:47) Oximetry (04/12/17 11:47) Sodium Chloride 0.9% Flush (Ns Flush) (04/12/17 12:00) Ckmb (Isoenzyme) Profile (04/12/17 11:47) Lipase (04/12/17 11:47) B-Type Natriuretic Peptide (04/12/17 12:01) Ct Pulmonary Angiogram (04/12/17 12:01) Sodium Chlorid 0.9% 500 Ml Inj (Ns 500 M (04/12/17 13:00) Iodixanol 320 Inj (Rad Ct) (Visipaque 32 (04/12/17 13:11) Labs Laboratory Tests Test 04/12/17 04/12/17 12:00 12:30 White Blood Count 5.4 TH/MM3 Red Blood Count 3.78 MIL/MM3 Hemoglobin 11.1 GM/DL Hematocrit 33.4 % Mean Corpuscular Volume 88.3 FL Mean Corpuscular Hemoglobin 29.4 PG Mean Corpuscular Hemoglobin 33.3 % Concent Red Cell Distribution Width 14.0 % Platelet Count 261 TH/MM3 Mean Platelet Volume 7.5 FL Neutrophils (%) (Auto) 66.9 % Lymphocytes (%) (Auto) 21.4 % Monocytes (%) (Auto) 6.6 % Eosinophils (%) (Auto) 4.4 % Basophils (%) (Auto) 0.7 % Neutrophils # (Auto) 3.6 TH/MM3 Lymphocytes # (Auto) 1.2 TH/MM3 Monocytes # (Auto) 0.4 TH/MM3 Eosinophils # (Auto) 0.2 TH/MM3 Basophils # (Auto) 0.0 TH/MM3 CBC Comment DIFF FINAL Differential Comment Prothrombin Time 10.8 SEC Prothromb Time International 1.0 RATIO Ratio Activated Partial 25.4 SEC Thromboplast Time Sodium Level 145 MEQ/L Potassium Level 4.6 MEQ/L Chloride Level 110 MEQ/L Carbon Dioxide Level 26.1 MEQ/L Anion Gap 9 MEQ/L Blood Urea Nitrogen 25 MG/DL Creatinine 1.51 MG/DL Estimat Glomerular Filtration 33 ML/MIN Rate Random Glucose 102 MG/DL Calcium Level 9.2 MG/DL Magnesium Level 1.9 MG/DL Total Bilirubin 0.4 MG/DL Aspartate Amino Transf 14 U/L (AST/SGOT) Alanine Aminotransferase 20 U/L (ALT/SGPT) Alkaline Phosphatase 66 U/L Total Creatine Kinase 46 U/L Troponin I LESS THAN 0.02 NG/ML B-Type Natriuretic Peptide 105 PG/ML Total Protein 7.3 GM/DL Albumin 3.4 GM/DL Lipase 153 U/L Urine Color YELLOW Urine Turbidity CLEAR Urine pH 5.0 Urine Specific [place] 1.026 Urine Protein TRACE mg/dL Urine Glucose (UA) NEG mg/dL Urine Ketones NEG mg/dL Urine Occult Blood NEG Urine Nitrite NEG Urine Bilirubin NEG Urine Urobilinogen LESS THAN 2.0 MG/DL Urine Leukocyte Esterase NEG Urine RBC LESS THAN 1 /hpf Urine WBC 1 /hpf Urine Squamous Epithelial <1 /hpf Cells Urine Bacteria OCC /hpf Urine Mucus FEW /lpf Microscopic Urinalysis Comment CULT NOT INDICATED MDM Medical Decision Making Medical Screen Exam Complete: Yes Emergency Medical Condition: Yes Differential Diagnosis Pneumonia versus CHF exacerbation versus PE versus ACS versus anxiety Narrative Course 82-year-old female presents to the emergency department by EMS for evaluation of shortness of breath and generalized weakness. Patient is afebrile, vital signs are stable. Physical examination is essentially unremarkable. She is in no acute distress, lungs are clear to auscultation. Per the PCP's office her oxygen saturation was 78% in their office, however it is noted she has thick nail syrian on her fingers. Her oxygen saturation is maintaining at 97-98% on room air here in the ED. Once we removed the nasal cannula the patient began to complain of shortness of breath again although she was still 97% on room air. IV access is obtained, labs drawn and sent. Chest x-ray has been ordered and is pending. CT pulmonary angiogram has been ordered and is pending. EKG shows normal sinus rhythm with no acute ST elevations or depressions. CBC shows mild anemia with hemoglobin 11.1, hematocrit 33.4. CMP shows renal insufficiency with a creatinine of 1.51, BUN 25, GFR 33. This does appear consistent with her recent labs 2 months ago. My attending physician Dr. Chauhan and I discussed the patient's borderline GFR, but decided with an abnormal chest x-ray and her complaints that a CTPA was indicated. Therefore we requested to give half the amount of contrast typically used and gave a fluid bolus of NS. Troponin is less than 0.02. BNP is 105. Coags are unremarkable. Urinalysis shows occasional bacteria, few mucus. CT pulmonary angiogram is negative for PE, shows multiple subcentimeter pulmonary nodular densities recommending three-month follow-up with noncontrast chest CT. Extensive mosaic attenuation pattern in the lungs likely representing gram glass opacity, inflammatory etiology versus pulmonary edema and the differential diagnosis. Mildly prominent hilar lymph nodes bilaterally. Labs and imaging are reassuring. The patient does not appear to be volume overloaded or in CHF exacerbation. She has remained stable and without complaint while here in the emergency department maintaining an oxygen saturation of 97-98% on room air. The patient is eager to go home. My attending physician Dr. Chauhan also evaluated the patient and we agree that she can be discharged to home with a prescription for Z-pack for possible early pneumonia. She is given return precautions for worsening shortness of breath, chest pain, lightheadedness, syncope, fever or chills. Patient verbalizes understanding and agreement with treatment plan. [facility]pt Point of Care Internal Pos. & Neg. Controls: Passed Fecal Specimen Occult Blood: Negative Diagnosis Primary Impression: Shortness of breath Referrals: Primary Care Physician Patient Instructions: General Instructions Additional Instructions: Take medication as prescribed with food and a full glass of water. Follow-up with your Primary Care Physician. Return to the ED for any acute worsening of symptoms. Med/Other Pt SpecificInfo: Prescription(s) given Disposition: 01 DISCHARGE HOME Condition: Stable Yas Scott Apr 12, 2017 12:00
[2017-04-12 12:21] LABS: AUTOMATED NEUTROPHIL # 3.6 TH/MM3 (1.8-7.7); BASOPHIL % 0.7 % (0.0-2.0); EOSINOPHIL # 0.2 TH/MM3 (0-0.4); EOSINOPHIL % 4.4 % (0.0-4.0); HEMATOCRIT 33.4 % (35.0-46.0); HEMO FLAGS DIFF FINAL; LYMPH % 21.4 % (9.0-44.0); LYMPHOCYTE # 1.2 TH/MM3 (1.0-4.8); MEAN CELL VOLUME 88.3 FL (80.0-100.0); MEAN CORPUSCULAR HEMOGLOBIN 29.4 PG (27.0-34.0); MEAN CORPUSCULAR HGB CONC 33.3 % (32.0-36.0); MONO % 6.6 % (0.0-8.0); NEUT % 66.9 % (16.0-70.0); PLATELET COUNT 261 TH/MM3 (150-450); RED BLOOD COUNT 3.78 MIL/MM3 (4.00-5.30); WHITE BLOOD COUNT 5.4 TH/MM3 (4.0-11.0)
--- NOTE | 2017-04-12 12:25 | RADRPT ---
EXAM DATE/TIME: 04/12/2017 11:58 [facility] COMPARISON: CHEST SINGLE AP, May 03, 2016, 13:27. INDICATIONS : Shortness of brath. MEDICAL HISTORY : None. SURGICAL HISTORY : None. ENCOUNTER: Initial ACUITY: 3 days PAIN SCORE: 2/10 LOCATION: Bilateral upper chest FINDINGS: Increased primarily interstitial opacities in the lower lobes bilaterally. Cardiac selected is border line enlarged. Pulmonary vascularity is minimally indistinct. Bony thorax is intact. CONCLUSION: 1. Subtle increased interstitial prominence in the lower lobes bilaterally. Although nonspecific, thi s may reflect atypical vascular redistribution versus chronic aspiration. Raul Martinez MD on April 12, 2017 at 12:20 Board Certified Radiologist. This report was verified electronically.
[2017-04-12 12:30] LABS: ALT (GPT) 20 U/L (10-53); ANION GAP 9 MEQ/L (5-15); AST (GOT) 14 U/L (15-37); BICARBONATE 26.1 MEQ/L (21.0-32.0); BLOOD UREA NITROGEN 25 MG/DL (7-18); CHLORIDE 110 MEQ/L (98-107); GLOMERULAR FILTRATION RATE 33 ML/MIN (>89); MAGNESIUM 1.9 MG/DL (1.5-2.5); POTASSIUM 4.6 MEQ/L (3.5-5.1); SODIUM (NA) 145 MEQ/L (136-145)
[2017-04-12 12:31] LABS: APTT (PATIENT) 25.4 SEC (24.3-30.1); PROTHROMBIN TIME - PATIENT 10.8 SEC (9.8-11.6)
[2017-04-12 12:34] LABS: ALKALINE PHOSPHATASE 66 U/L (45-117); TOTAL BILIRUBIN ADULT 0.4 MG/DL (0.2-1.0)
[2017-04-12 12:38] LABS: CREATINE KINASE 46 U/L (26-192)
[2017-04-12 12:42] LABS: BACTERIA, URINE OCC /hpf; BLOOD, URINE NEG (NEG); COMMENT (UR) CULT NOT INDICATED; CULTURE IF INDICATED CULT NOT INDICATED; GLUCOSE,URINE NEG (NEG); KETONE, URINE NEG (NEG); MUCUS URINE FEW /lpf (OCC); NITRITE,URINE NEG (NEG); SQUAMOUS EPITHELIAL CELL URINE <1 /hpf (0-5); URINE COLOR YELLOW (YELLW/STRAW)
[2017-04-12] MEDS ORDERED: GABA400C5 PO (12:46)
[2017-04-12] MEDS ORDERED: SODIUM CHLORID 0.9% 500 ML INJ 500 ML IV ONE (13:00)
[2017-04-12] MEDS ORDERED: IODIXANOL 320 MG/ML 10 ML VIAL (for Rad CT) IV ONE (13:11)
--- NOTE | 2017-04-12 13:33 | RADRPT ---
EXAM DATE/TIME: 04/12/2017 13:01 [facility] COMPARISON: No previous studies available for comparison. INDICATIONS : Dyspnea for 3 days IV CONTRAST: 50 cc Visipaque (iodixanol) IV RADIATION DOSE: 9.95 CTDIvol (mGy) MEDICAL HISTORY : Cardiovascular disease. Hypertension. Congestive heart failure. SURGICAL HISTORY : Appendectomy. Hysterectomy. ENCOUNTER: Initial ACUITY: 1 day PAIN SCALE: 0/10 LOCATION: chest TECHNIQUE: Volumetric scanning of the chest was performed using a pulmonary embolism protocol MIP images were re constructed. Using automated exposure control and adjustment of the mA and/or kV according to patien t size, radiation dose was kept as low as reasonably achievable to obtain optimal diagnostic quality images. FINDINGS: PULMONARY ARTERIES: No filling defects are seen in the pulmonary arteries through the segmental level. LUNGS: Diffuse mosaic attenuation pattern of the lungs likely representing areas of groundglass opacity. 4 m m nodular density in the left lower lobe on image #82. 5 mm nodular density in the left midlung on im age #46. 9 mm nodular density in the left mid lung on image #60. 4 mm nodular density in the left mid lung on image #58. PLEURAE: There is no pleural thickening or pleural effusion. MEDIASTINUM: Aortic diameter are within normal limits. Coronary artery calcifications. Prominent bilateral hilar l ymph nodes. Trace pericardial effusion. MUSCULOSKELETAL: Within normal limits for patient age. MISCELLANEOUS: The visualized upper abdominal organs demonstrate no acute abnormality. CONCLUSION: 1. No evidence of pulmonary embolus. 2. Multiple subcentimeter pulmonary nodular densities. Recommend three-month followup noncontrast la[address] st CT. 3. Extensive mosaic attenuation pattern in the lungs likely representing groundglass opacity. Inflamm atory etiologies and pulmonary edema in the differential diagnosis. 4. Mildly prominent hilar lymph nodes bilaterally, may be reactive. Nicko Colon MD on April 12, 2017 at 13:20 Board Certified Radiologist. This report was verified electronically.
[2017-04-12] MEDS ORDERED: ZITHTAB PO (14:11)
[2017-04-12 14:45] VITALS: BP 166/77
--- NOTE | 2017-04-13 12:10 | EKG ---
Date Performed: 04/12/2017 Time Performed: 11:45:36 PTAGE: 82 years EKG: Sinus rhythm NORMAL ECG NO PREVIOUS TRACING DOCTOR: David Philip Interpretating Date/Time 04/13/2017 12:08:02
[2017-05-17] MEDS ORDERED: METF1000 PO (09:26)
== END 2017-04-12 14:47 | disposition home or self-care (01) ==
LOC: NEPE 11:26
DX: R06.02 Shortness of breath (principal); I50.9 Heart failure, unspecified; I48.91 Unspecified atrial fibrillation; I10 Essential (primary) hypertension; E78.5 Hyperlipidemia, unspecified; E11.9 Type 2 diabetes mellitus without complications; E03.9 Hypothyroidism, unspecified; Z79.82 Long term (current) use of aspirin; D64.9 Anemia, unspecified; N28.9 Disorder of kidney and ureter, unspecified
CPT/HCPCS: 71010; 71275; 80053; 81001; 82550; 83690; 83735; 83880; 84484; 85025; 85610; 85730; 93005; 99285; J7040; Q9967

== ENCOUNTER → 2017-09-10 | Outpatient (CLI) | payer MEDICARE, OTHER ==
[~2017-09-10] MED LIST changes: -GABA100C4 PO; +GABA400C5 PO; +LYRI50CA PO; -MULT-6 PO; -ULTR50TA5 PO; -VENL1CAP38 PO
[2017-09-10 10:47] LABS: AUTOMATED NEUTROPHIL # 2.4 TH/MM3 (1.8-7.7); BASOPHIL # 0.1 TH/MM3 (0-0.2); BASOPHIL % 1.2 % (0.0-2.0); EOSINOPHIL # 0.2 TH/MM3 (0-0.4); EOSINOPHIL % 5.3 % (0.0-4.0); HEMATOCRIT 37.6 % (35.0-46.0); HEMO FLAGS DIFF FINAL; LYMPHOCYTE # 1.5 TH/MM3 (1.0-4.8); MEAN CELL VOLUME 87.8 FL (80.0-100.0); MEAN CORPUSCULAR HEMOGLOBIN 29.2 PG (27.0-34.0); MEAN CORPUSCULAR HGB CONC 33.2 % (32.0-36.0); MONO % 6.3 % (0.0-8.0); NEUT % 54.2 % (16.0-70.0); PLATELET COUNT 236 TH/MM3 (150-450); RED BLOOD COUNT 4.28 MIL/MM3 (4.00-5.30); RED CELL DISTRIBUTION WIDTH 14.1 % (11.6-17.2); WHITE BLOOD COUNT 4.5 TH/MM3 (4.0-11.0)
[2017-09-10 11:06] LABS: ALT (GPT) 19 U/L (10-53); ANION GAP 7 MEQ/L (5-15); AST (GOT) 19 U/L (15-37); BLOOD UREA NITROGEN 23 MG/DL (7-18); CHLORIDE 107 MEQ/L (98-107); GLOMERULAR FILTRATION RATE 46 ML/MIN (>89); GLUCOSE,FASTING 117 MG/DL (74-99); POTASSIUM 4.3 MEQ/L (3.5-5.1); SODIUM (NA) 141 MEQ/L (136-145)
[2017-09-10 11:16] LABS: ALKALINE PHOSPHATASE 71 U/L (45-117); HDL CHOLESTEROL 49.2 MG/DL (40.0-60.0); LDL CHOLESTEROL 73 MG/DL (0-99); TOTAL BILIRUBIN ADULT 0.5 MG/DL (0.2-1.0)
[2017-09-10 17:12] LABS: HEMOGLOBIN A1b 2.4 %; HEMOGLOBIN Ao 82.8 %; HEMOGLOBIN LA1C 2.4 %; HEMOGLOBIN P3 5.9 %
== END ==
LOC: CLAB 10:10
PROVIDERS: ATTEND Family Medicine
DX: E03.9 Hypothyroidism, unspecified (principal); E11.42 Type 2 diabetes mellitus with diabetic polyneuropathy; I10 Essential (primary) hypertension; E55.9 Vitamin D deficiency, unspecified
CPT/HCPCS: 36415; 80053; 80061; 82306; 83036; 84443; 85025

== ENCOUNTER → 2017-12-07 | Outpatient (CLI) | payer MEDICARE, OTHER ==
[~2017-12-07] MED LIST changes: +ASPI-183 PO; -ASPI325T PO; -CHOL20005 PO; +D200CAP PO; -LYRI50CA PO; +LYRI75CA PO
[2017-12-07 13:55] LABS: BASOPHIL # 0.1 TH/MM3 (0-0.2); BASOPHIL % 1.1 % (0.0-2.0); EOSINOPHIL # 0.2 TH/MM3 (0-0.4); EOSINOPHIL % 4.4 % (0.0-4.0); HEMATOCRIT 36.5 % (35.0-46.0); HEMOGLOBIN 12.3 GM/DL (11.6-15.3); LYMPH % 27.9 % (9.0-44.0); LYMPHOCYTE # 1.4 TH/MM3 (1.0-4.8); MEAN CELL VOLUME 86.5 FL (80.0-100.0); MEAN CORPUSCULAR HEMOGLOBIN 29.2 PG (27.0-34.0); MEAN CORPUSCULAR HGB CONC 33.8 % (32.0-36.0); MEAN PLATELET VOLUME 7.9 FL (7.0-11.0); MONO % 6.3 % (0.0-8.0); MONOCYTE # 0.3 TH/MM3 (0-0.9); NEUT % 60.3 % (16.0-70.0); PLATELET COUNT 181 TH/MM3 (150-450); RED BLOOD COUNT 4.22 MIL/MM3 (4.00-5.30); RED CELL DISTRIBUTION WIDTH 13.2 % (11.6-17.2)
[2017-12-07 14:02] LABS: ALBUMIN 3.3 GM/DL (3.4-5.0); ALT (GPT) 11 U/L (10-53); AST (GOT) 13 U/L (15-37); BICARBONATE 31.3 MEQ/L (21.0-32.0); BLOOD UREA NITROGEN 24 MG/DL (7-18); CALCIUM 9.7 MG/DL (8.5-10.1); CHLORIDE 109 MEQ/L (98-107); CHOLESTEROL 127 MG/DL (120-200); CREATININE 1.18 MG/DL (0.50-1.00); GLOMERULAR FILTRATION RATE 44 ML/MIN (>89); GLUCOSE,FASTING 110 MG/DL (74-99); SODIUM (NA) 144 MEQ/L (136-145); TRIGLYCERIDES 87 MG/DL (42-150)
[2017-12-07 14:12] LABS: ALKALINE PHOSPHATASE 64 U/L (45-117); CHOLESTEROL/ HDL RATIO 2.56 RATIO; HDL CHOLESTEROL 49.5 MG/DL (40.0-60.0); LDL CHOLESTEROL 60 MG/DL (0-99); TOTAL BILIRUBIN ADULT 0.5 MG/DL (0.2-1.0); TOTAL PROTEIN 7.1 GM/DL (6.4-8.2)
[2017-12-07 17:01] LABS: HEMOGLOBIN A1C 6.4 % (4.3-6.0)
== END ==
LOC: CLAB 13:19
PROVIDERS: ATTEND Family Medicine
DX: I10 Essential (primary) hypertension (principal); E11.42 Type 2 diabetes mellitus with diabetic polyneuropathy
CPT/HCPCS: 36415; 80053; 80061; 82043; 83036; 84443; 85025